=== PATIENT | female | born 1960 ===

== ENCOUNTER 2017-06-09 14:07 | Emergency (ER) | payer BC ==
[2017-06-09 14:20] VITALS: BP 138/83; PULSE 83; RESP 18; TEMP 98.4; O2SAT 97
[2017-06-09] MEDS ORDERED: Lidocaine 2% Inj (20ml) INFIL ONE (14:50)
[2017-06-09] MEDS ORDERED: Lidocaine 2% Inj (20ml) ONE (14:54)
[2017-06-09] MEDS ORDERED: Bacitracin 500 Units/gm Oint Foilpak UD ONE (14:54)
--- NOTE | 2017-06-09 15:08 | C.PDOC ---
History Of Present Illness 56 y/o female presents to the ED c/o mass underneath the chin. The patient notes that she has had this lesion for years, sometimes it's larger other times , smaller. She presents today because it is causing discomfort. No fever, chills , sore throat. Time Seen by Provider: 06/09/17 14:34 Chief Complaint (Nursing): Abnormal Skin Integrity History Per: Patient History/Exam Limitations: no limitations Onset/Duration Of Symptoms: Days Current Symptoms Are (Timing): Still Present Past Medical History Reviewed: Historical Data, Nursing Documentation, Vital Signs Vital Signs: Last Vital Signs Temp 98.4 F 06/09/17 14:16 Pulse 83 06/09/17 14:16 Resp 18 06/09/17 14:16 BP 138/83 06/09/17 14:16 Pulse Ox 97 06/09/17 19:11 - Medical History PMH: HTN Surgical History: No Surg Hx Family History: States: No Known Family Hx - Social History Hx Alcohol Use: No Hx Substance Use: No - Immunization History Hx Influenza Vaccination: Yes Review Of Systems Except As Marked, All Systems Reviewed And Found Negative. Constitutional: Negative for: Fever, Chills, Sweats Respiratory: Negative for: Cough, Shortness of Breath Gastrointestinal: Negative for: Nausea, Vomiting Musculoskeletal: Positive for: Other ( discomfort due to lack of drainage ) Skin: Negative for: Rash Physical Exam - Physical Exam Appears: Non-toxic Skin: Warm Head: Atraumatic, Normacephalic Oral Mucosa: Moist Neck: Other ( 2x 2 cystis structure under the chin, non tender, and no erythema) Extremity: Normal ROM, Capillary Refill (<2sec. ) Neurological/Psych: Oriented x3, Normal Speech, Normal Cognition Gait: Steady ED Course And Treatment O2 Sat by Pulse Oximetry: 97 (RA) Progress Note: The patient received 0.5 incision of the Lidocaine anesthetic . The patient has improved and is resting comfortably. The patient is advised to have a follow up with PMD for further evaluation. Disposition Counseled Patient/Family Regarding: Diagnosis - Disposition Referrals: [facility] [Outside] Disposition: HOME/ ROUTINE Disposition Time: 15:03 Condition: STABLE Instructions: Abscess Incision and Drainage (ED) Forms: [employer] (Cuban) - POA Present On Arrival: None - Clinical Impression Clinical Impression: Encounter for incision and drainage procedure - Scribe Statement The provider has reviewed the documentation as recorded by the Scribe Cassandra Garcia All medical record entries made by the Scribe were at my direction and personally dictated by me. I have reviewed the chart and agree that the record accurately reflects my personal performance of the history, physical exam, medical decision making, and the department course for this patient. I have also personally directed, reviewed, and agree with the discharge instructions and disposition.
== END 2017-06-09 15:41 | disposition home or self-care (01) ==
LOC: C.ER 14:07
DX: D23.39 Other benign neoplasm of skin of other parts of face (principal)